=== PATIENT | male | born 1985 | race Caucasian/White ===

== ENCOUNTER 2017-10-01 00:09 | Emergency (ER) | payer SELFPAY ==
[~2017-10-01] VITALS: Ht 167.6 cm; Wt 75.0 kg
[~2017-10-01 00:09] MED LIST: PROC1TAB8 PO
[2017-10-01 00:11] VITALS: BP 137/86; PULSE 82; RESP 18; TEMP 97.6; O2SAT 97
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
== END 2017-10-01 01:22 | disposition left against medical advice (07) ==
LOC: NEPC 00:09
DX: S99.912A Unspecified injury of left ankle, initial encounter (principal); W22.8XXA Striking against or struck by other objects, initial encounter; Z72.0 Tobacco use; Z88.0 Allergy status to penicillin; Z53.20 Procedure and treatment not carried out because of patient's decision for unspecified reasons
CPT/HCPCS: 99281